=== PATIENT | female | born 1950 | race Caucasian/White ===

== ENCOUNTER 2018-11-11 15:15 | Outpatient (CLI) | payer BC ==
--- NOTE | 2018-11-11 15:43 | RAD ---
EXAM: XR Lumbar Spine Min 4 View PROVIDED CLINICAL HISTORY: Low back pain that radiates down left leg. Symptoms have been present for past week. COMPARISON: None FINDINGS: There are 5 nonrib-bearing lumbar-type vertebral bodies. There is mild left convex curvature of the l umbar spine. Multilevel osteophytes are seen. There is narrowing of the intervertebral disc spaces at all levels of the lumbar spine. There is mild concavity within the superior endplate of the centra l L4 vertebral body which may represent a prominent Schmorl's node. No obvious compression fracture is seen. There is no evidence of subluxation. No abnormal translational motion is seen between the f lexion and extension views of the lumbar spine. There are calcifications seen anterior to the lumbar spine on the lateral view anterior to the L1 -2 and L2-3 levels which are difficult to further localize. IMPRESSION: Multilevel degenerative changes with mild left convex curvature lumbar spine.
== END 2018-11-11 15:16 | disposition home or self-care (01) ==
LOC: SCSRAD 15:15
PROVIDERS: ATTEND Family Medicine
DX: M47.26 Other spondylosis with radiculopathy, lumbar region (principal); M43.9 Deforming dorsopathy, unspecified
CPT/HCPCS: 72110

== ENCOUNTER 2018-12-07 08:35 | Outpatient (CLI) | payer BC ==
--- NOTE | 2018-12-07 09:44 | MMO ---
Bilateral MAMMO Bilat Screen [facility]. CLINICAL HISTORY: Patient is 68 years old and is seen for screening. The patient has no family history of breast cancer. The patient has no personal history of cancer. The patient has a history of Implants in 1980. VIEWS: The views performed were: bilateral craniocaudal; bilateral mediolateral oblique; and bilateral Implant displaced with tomosynthesis. MAMMOGRAM FINDINGS: There are scattered fibroglandular densities. There are benign appearing calcifications seen in both breasts. Mild contour abnormality of bilateral breast implants without mammographic evidence of extracapsular rupture. There are no suspicious masses, suspicious calcifications, or new areas of architectural distortion. IMPRESSION: THERE IS NO MAMMOGRAPHIC EVIDENCE OF MALIGNANCY. A ROUTINE FOLLOW-UP MAMMOGRAM IN 1 YEAR IS RECOMMENDED. THE RESULTS OF THIS EXAM WERE SENT TO THE PATIENT. ACR BI-RADS Category 2 - Benign finding MAMMOGRAPHY NOTE: 1. A negative mammogram report should not delay a biopsy if a dominant of clinically suspicious mass is present. 2. Approximately 10% to 15% of breast cancers are not detected by mammography. 3. Adenosis and dense breasts may obscure an underlying neoplasm. Reported by: JAZLYN GUAJARDO MD Electonically Signed: [id number]
== END 2018-12-07 08:36 | disposition home or self-care (01) ==
LOC: BICMAMMO 08:35
PROVIDERS: ATTEND Family Medicine
DX: Z12.31 Encounter for screening mammogram for malignant neoplasm of breast (principal); Z98.82 Breast implant status
CPT/HCPCS: 77063; 77067